=== PATIENT | female | born 1960 | race Caucasian/White ===

== ENCOUNTER 2018-07-13 20:00 | Inpatient (IN) ==
[2018-07-13 20:58] LABS: Basophils # (auto) 0.02 K/uL (0-0.2); Basophils % (auto) 0.3 %; Eosinophils # (auto) 0.14 K/uL (0-0.5); Eosinophils % (auto) 1.8 %; Hematocrit (blood only) 42.2 % (37-47); Hemoglobin 14.2 g/dL (12.0-16.0); Immature Granulocytes # (auto) 0.01 K/uL (0.00-0.02); Immature Granulocytes % (auto) 0.1 %; Lymphocytes # (auto) 2.41 K/uL (1.2-3.4); Lymphocytes % (auto) 30.8 %; Mean Corpuscular Hgb Conc 33.6 g/dL (32-36); Mean Corpuscular Volume 89.2 fL (80-100); Mean Platelet Volume 9.1 fL (7.4-10.4); Monocytes # (auto) 0.46 K/uL (0.11-0.59); Monocytes % (auto) 5.9 %; Neutrophils # (auto) 4.78 K/uL (1.4-6.5); Neutrophils % (auto) 61.1 %; Platelet Count 288 K/uL (130-400); RDW Coefficient of Variation 13.3 % (11.5-14.5); RDW Standard Deviation 43.5 fL (36.4-46.3); Red Blood Count 4.73 M/uL (4.2-5.4); White Blood Count 7.82 K/uL (4.8-10.8)
[2018-07-13 21:14] LABS: Albumin Level 4.1 gm/dl (3.4-5.0); BUN Creatinine Ratio 8.3 (10-20); Calcium 9.2 mg/dl (8.5-10.1); Creatinine Clr Calc Pharmacy 79.3 ml/min; Est GFR (African American) 87.5; Est GFR (Non-African American) 75.5; Potassium 3.6 mmol/L (3.5-5.1)
[2018-07-13 21:24] LABS: Albumin Globulin Ratio 0.9 (0.9-2); Bilirubin,Total 0.3 mg/dl (0.2-1); Globulin 4.5 gm/dl (2.5-4.0); Total Protein 8.6 gm/dl (6.4-8.2)
[2018-07-13 21:26] LABS: Acetaminophen < 2 ug/ml (10-30); Salicylate < 1.7 mg/dl (2.8-20)
[2018-07-13 21:37] LABS: T4 Free Thyroxine 1.06 ng/dl (0.8-1.6)
[2018-07-13 22:18] LABS: Appearance Urine Clear (Clear); Bacteria Urine Automated Negative (Negative); Bilirubin Urine Negative (Negative); Blood Urine Trace (Negative); Color Urine Yellow; Epithelial Cell Urine Auto >30 /lpf (0-5); Glucose Urine UA Negative (Negative); Ketones Urine Negative (Negative); Leukocyte Esterase Urine 3+ (Negative); Nitrite Urine Negative (Negative); Protein Urine Negative (Negative); RBC Urine Automated 0-4 /hpf (0-4); Urobilinogen Urine Negative (Negative); WBC Urine Automated >30 /hpf (0-5); pH Urine 6.5 (4.5-7.5)
[2018-07-13 22:29] LABS: Renal Epithelial Cells Urine 0-5 /lpf (0-5)
[2018-07-13 22:45] LABS: Amphetamines+Metham, Urine Neg (Neg); Barbiturates, Urine Neg (Neg); Benzodiazepine, Urine Neg (Neg); Cocaine, Urine Neg (Neg); MDMA (Ecstacy), Urine Neg (Neg); Methadone, Urine Neg (Neg); Opiate, Urine Neg (Neg); Phencyclidine, Urine Neg (Neg)
--- NOTE | 2018-07-14 02:01 | Emergency Department Note ---
Entered by Jannet Smith acting as a scribe for History of Present Illness General Chief complaint: Mental Health Evaluation Stated complaint: DEPRESSION Time Seen by Provider: 07/13/18 20:16 Source: patient History of Present Illness Onset (ago): month(s) (several) Severity: similar to prior episodes Pain Consistency: + other (episode) Quality: + other (worsening depression) Associated symptoms: + other (positive increased feelings of guilt, increased tiredness; positive increased sleeping; positive loss of interest in activities; positive loss of energy; negative hearing voices; negative thoughts of hurting others; positive cut left arm) The patient is a 58 year old female who presents to the Emergency Room with complaints of an episode of worsening depression that began several months prior to arrival. The patient states that her depression began a few years ago after her committed suicide. She states that during this episode she has been sleeping more, lost interest in activities, feels more tired, loss of appetite, and has less energy. The patient states that she has been feeling worsening guilt during this time. The patient denies thoughts of hurting anyone else, and denies hearing voices that are not there. She states that she recently tried to cut herself on the left arm with a knife, but denies attempting to cut herself anywhere else. The patient states that she sees a psychologist and is on Ambien, Lorazepam, and Paxil. The patient states that she has never been hospitalized for a psychiatric condition. The patient states that she has been drinking more alcohol recently. She states that she has guns at home. The patient denies use of drugs. Home Medications Home Medications Medication Instructions Recorded Confirmed Type lorazepam 0.5 mg PO TID PRN 07/13/18 07/13/18 History paroxetine HCl [Paxil] 10 mg PO DAILY 07/13/18 07/13/18 History zolpidem [Ambien] 5 mg PO HS PRN 07/13/18 07/13/18 History Allergies Allergy/AdvReac Type Severity Reaction Status Date / Time No Known Allergies Allergy Unverified 07/13/18 20:34 Past Med/Surg History Medical History Depression (Chronic) Social History Feels Safe at Home: Yes Smoking Status: Never smoker Review of Systems See HPI for pertinent positives & negatives. and A total of 10 systems reviewed and were otherwise negative Physical Exam Vital Signs Vital Signs - 24 hr 07/13/18 20:09 07/13/18 23:08 Temperature 36.8 C Temperature Source Oral Sepsis Recent Fever Within 48 Hours No Sepsis New/Unexplained Change in Mental Status No Sepsis Action Taken by Nursing No Action Required Pulse Rate 120 H Pulse Rate [Right Finger] 98 H Pulse Rhythm Regular Respiratory Rate 20 16 Respiratory Effort / Characteristics Non-Labored Spontaneous Non-Labored Spontaneous Respiratory Depth Normal Normal Respiratory Pattern Regular Regular Blood Pressure 138/99 Blood Pressure [Left Arm] 146/72 H Blood Pressure Mean 112 Blood Pressure Mean [Left Arm] 96 Blood Pressure Position Sitting Blood Pressure Position [Left Arm] Lying Pulse Oximetry 94 95 Oxygen Delivery Method Room Air Room Air GENERAL: She is oriented to person, place, and time. She appears well-developed and well-nourished. She does not appear distressed. HENT: Exam performed. -Head: Normocephalic and atraumatic. -Right Ear: External ear normal. No mastoid tenderness. -Left Ear: External ear normal. No mastoid tenderness. -Mouth/Throat: The oropharynx is clear and moist. No trismus in the jaw. No dental abscesses or uvula swelling. No oropharyngeal exudate or tonsillar abscesses. EYES: Conjunctivae and EOM are normal. Pupils are equal, round, and reactive to light. Right eye exhibits no discharge. Left eye exhibits no discharge. No scleral icterus. NECK: Normal range of motion. Neck supple. No JVD present. No spinous process tenderness present. No carotid bruit present. No rigidity. No tracheal deviation and normal range of motion present. No Brudzinski's sign and no Kernig's sign noted. CV: Normal rate, regular rhythm, normal heart sounds and intact distal pulses. There is no peripheral edema. Palpable radial pulses bue. PULM/CHEST: Effort normal and breath sounds normal. No respiratory distress. No stridor. She has no wheezes. She has no rales. Chest Wall: She exhibits no tenderness. ABD: The abdomen is soft. Bowel sounds are normal. She has no distension. No mass is present. There is no tenderness. There is no rebound, no guarding, no Mansfield's sign and no tenderness at McBurney's point. Rovsig negative MUSC/SKEL: Normal range of motion. There is no peripheral edema, tenderness or deformity. LYMPH: No cervical adenopathy. NEURO: She is alert and oriented to person, place, and time. She has normal strength. No cranial nerve deficit or sensory deficit. Coordination and gait normal. GCS eye subscore is 4. GCS verbal subscore is 5. GCS motor subscore is 6. cerbellar tests wnl. SKIN: Skin is warm and dry. She is not diaphoretic. Abrasions to the left upper extremity. PSYCH: Her behavior is normal. Judgment and thought content normal. Depressed tearful. Positive SI. No HI. Course 2033: The patient was evaluated in room A5 and a complete history and physical examination were performed. 0200: Vital signs stable. Patient medically cleared, awaiting psych eval. Case signed out to Dr. Aguilar. Medical Decision Making Medical Records Attestation: I reviewed the patient's medical records. Home Medications Current Medication List: was personally reviewed by me Laboratory Data Attestation: I reviewed the patient's lab results. Result diagrams: 07/13/18 20:38 07/13/18 20:38 Lab Results 07/13/18 07/13/18 07/13/18 Range/Units 20:38 20:38 20:38 WBC 7.82 (4.8-10.8) K/uL RBC 4.73 (4.2-5.4) M/uL Hgb 14.2 (12.0-16.0) g/dL Hct 42.2 (37-47) % MCV 89.2 (80-100) fL MCH 30.0 (25-34) pg MCHC 33.6 (32-36) g/dL RDW Std Deviation 43.5 (36.4-46.3) fL RDW Coeff of Chito 13.3 (11.5-14.5) % Plt Count 288 (130-400) K/uL MPV 9.1 (7.4-10.4) fL Immature Gran % (Auto) 0.1 % Neut % (Auto) 61.1 % Lymph % (Auto) 30.8 % Porter % (Auto) 5.9 % Eos % (Auto) 1.8 % Baso % (Auto) 0.3 % Immature Gran # (Auto) 0.01 (0.00-0.02) K/uL Neut # (Auto) 4.78 (1.4-6.5) K/uL Lymph # (Auto) 2.41 (1.2-3.4) K/uL Porter # (Auto) 0.46 (0.11-0.59) K/uL Eos # (Auto) 0.14 (0-0.5) K/uL Baso # (Auto) 0.02 (0-0.2) K/uL Sodium 142 (136-145) mmol/L Potassium 3.6 (3.5-5.1) mmol/L Chloride 110 H (98-107) mmol/L Carbon Dioxide 21 (21-32) mmol/L Anion Gap 11.0 (3-11) BUN 7 (7-18) mg/dl Creatinine 0.86 (0.6-1.2) mg/dl Est Cr Clr Drug Dosing 79.3 ml/min Est GFR ( Amer) 87.5 Est GFR (Non-Af Amer) 75.5 BUN/Creatinine Ratio 8.3 L (10-20) Glucose 130 H (70-99) mg/dl Calcium 9.2 (8.5-10.1) mg/dl Total Bilirubin 0.3 (0.2-1) mg/dl AST 48 H (15-37) U/L ALT 63 (12-78) U/L Alkaline Phosphatase 69 (45-117) U/L Total Protein 8.6 H (6.4-8.2) gm/dl Albumin 4.1 (3.4-5.0) gm/dl Globulin 4.5 H (2.5-4.0) gm/dl Albumin/Globulin Ratio 0.9 (0.9-2) TSH 5.720 H (0.300-4.500) uIu/ml Free T4 1.06 (0.8-1.6) ng/dl Urine Color Urine Appearance (Clear) Urine pH (4.5-7.5) Ur Specific [place] (1.000-1.030) Urine Protein (Negative) Urine Glucose (UA) (Negative) Urine Ketones (Negative) Urine Blood (Negative) Urine Nitrite (Negative) Urine Bilirubin (Negative) Urine Urobilinogen (Negative) Ur Leukocyte Esterase (Negative) Urine WBC (Auto) (0-5) /hpf Urine RBC (Auto) (0-4) /hpf U Hyaline Cast (Auto) (0-5) /lpf U Epithel Cells (Auto) (0-5) /lpf Urine Bacteria (Auto) (Negative) Ur Renal Epithelial Cell (0-5) /lpf Salicylates < 1.7 L (2.8-20) mg/dl Urine Opiates Screen (Neg) Ur Methadone, Qual (Neg) Acetaminophen < 2 L (10-30) ug/ml Urine Barbiturates (Neg) Ur Phencyclidine (PCP) (Neg) U Amphetamin/Meth Scrn (Neg) MDMA (Ecstasy) Screen (Neg) U Benzodiazepines Scrn (Neg) Ur Cocaine Metabolite (Neg) U Marijuana (THC) Screen (Neg) Ethyl Alcohol mg/dL (0-3) mg/dl 07/13/18 07/13/18 07/13/18 Range/Units 20:38 21:40 22:18 WBC (4.8-10.8) K/uL RBC (4.2-5.4) M/uL Hgb (12.0-16.0) g/dL Hct (37-47) % MCV (80-100) fL MCH (25-34) pg MCHC (32-36) g/dL RDW Std Deviation (36.4-46.3) fL RDW Coeff of Chito (11.5-14.5) % Plt Count (130-400) K/uL MPV (7.4-10.4) fL Immature Gran % (Auto) % Neut % (Auto) % Lymph % (Auto) % Porter % (Auto) % Eos % (Auto) % Baso % (Auto) % Immature Gran # (Auto) (0.00-0.02) K/uL Neut # (Auto) (1.4-6.5) K/uL Lymph # (Auto) (1.2-3.4) K/uL Porter # (Auto) (0.11-0.59) K/uL Eos # (Auto) (0-0.5) K/uL Baso # (Auto) (0-0.2) K/uL Sodium (136-145) mmol/L Potassium (3.5-5.1) mmol/L Chloride (98-107) mmol/L Carbon Dioxide (21-32) mmol/L Anion Gap (3-11) BUN (7-18) mg/dl Creatinine (0.6-1.2) mg/dl Est Cr Clr Drug Dosing ml/min Est GFR ( Amer) Est GFR (Non-Af Amer) BUN/Creatinine Ratio (10-20) Glucose (70-99) mg/dl Calcium (8.5-10.1) mg/dl Total Bilirubin (0.2-1) mg/dl AST (15-37) U/L ALT (12-78) U/L Alkaline Phosphatase (45-117) U/L Total Protein (6.4-8.2) gm/dl Albumin (3.4-5.0) gm/dl Globulin (2.5-4.0) gm/dl Albumin/Globulin Ratio (0.9-2) TSH (0.300-4.500) uIu/ml Free T4 (0.8-1.6) ng/dl Urine Color Yellow Urine Appearance Clear (Clear) Urine pH 6.5 (4.5-7.5) Ur Specific [place] 1.010 (1.000-1.030) Urine Protein Negative (Negative) Urine Glucose (UA) Negative (Negative) Urine Ketones Negative (Negative) Urine Blood Trace H (Negative) Urine Nitrite Negative (Negative) Urine Bilirubin Negative (Negative) Urine Urobilinogen Negative (Negative) Ur Leukocyte Esterase 3+ H (Negative) Urine WBC (Auto) >30 H (0-5) /hpf Urine RBC (Auto) 0-4 (0-4) /hpf U Hyaline Cast (Auto) 1-5 (0-5) /lpf U Epithel Cells (Auto) >30 H (0-5) /lpf Urine Bacteria (Auto) Negative (Negative) Ur Renal Epithelial Cell 0-5 (0-5) /lpf Salicylates (2.8-20) mg/dl Urine Opiates Screen Neg (Neg) Ur Methadone, Qual Neg (Neg) Acetaminophen (10-30) ug/ml Urine Barbiturates Neg (Neg) Ur Phencyclidine (PCP) Neg (Neg) U Amphetamin/Meth Scrn Neg (Neg) MDMA (Ecstasy) Screen Neg (Neg) U Benzodiazepines Scrn Neg (Neg) Ur Cocaine Metabolite Neg (Neg) U Marijuana (THC) Screen Neg (Neg) Ethyl Alcohol mg/dL 183.0 H (0-3) mg/dl Blood Pressure Blood Pressure Findings: Elevated blood pressure Blood Pressure Disposition: elevated BP felt to be situational MDM Narrative Vital signs stable. Patient medically cleared, awaiting psych eval. Case signed out to Dr. Aguilar. Impression & Plan Depression Discharge Plan Visit Data Chief Complaint: Mental Health Evaluation Stated Complaint: DEPRESSION ED Provider: Rubio Monaco Discharge Problem: Depression Patient Disposition: Still a Patient Forms Stand Alone Forms: My [facility] Prescriptions Prescriptions: No Action paroxetine HCl [Paxil] 10 mg Tablet 10 mg PO DAILY RF: 0 lorazepam 0.5 mg Tablet 0.5 mg PO TID PRN (Reason: Anxiety) RF: 0 zolpidem [Ambien] 5 mg Tablet 5 mg PO HS PRN (Reason: sleep) RF: 0 Referrals Referrals: PCP,NO [Primary Care Provider] - Discharge Problem: Depression Qualifiers: Depression Type: unspecified Qualified Code(s): F32.9 - Major depressive disorder, single episode, unspecified The scribe's documentation has been prepared under my direction and personally reviewed by me in its entirety. I confirm that the note above accurately reflects all work, treatment, procedures, and medical decision making performed by me.
--- NOTE | 2018-07-14 06:29 | Emergency Department Note ---
ED Visit Note ED Physician Sign Out Note: 58 yr old female with depression and suicidal ideation requesting admission evaluated and medically cleared by Dr Monaco earlier in evening. Signed out to me pending placement. No issues overnight and signed out to Dr Presley pending placement. Anthony Aguilar MD : Depression Qualifiers: Depression Type: unspecified Qualified Code(s): F32.9 - Major depressive disorder, single episode, unspecified
[2018-07-14] MEDS ORDERED: BISMUTH SUBSALICYLATE PER ML OMNICELL CHARGE PO PRN (09:28)
[2018-07-14] MEDS ORDERED: MAGNESIUM HYDROXIDE SUSP 30 ML UDC PO PRN (09:28)
[2018-07-14] MEDS ORDERED: ACETAMINOPHEN 325 MG TAB PO PRN (09:28)
[2018-07-14] MEDS ORDERED: ALUMINUM/MAGNESIUM SUSP 30 ML UDC PO PRN (09:28)
[2018-07-14] MEDS ORDERED: SODIUM CHLORIDE 0.65% NA SOLN 45 ML (OCEAN) PRN (09:28)
--- NOTE | 2018-07-14 10:02 | Emergency Department Note ---
ED Visit Note Patient is a 58-year-old female on a voluntary inpatient commitment suicidal ideation and depression. Was previously medically cleared. Patient was awaiting bed placement. No other acute issues. Evaluated by [facility] and accepted there for further care. ATC . : Depression Qualifiers: Depression Type: unspecified Qualified Code(s): F32.9 - Major depressive disorder, single episode, unspecified
--- NOTE | 2018-07-14 14:21 | History & Physical ---
Date of Service July 14, 2018 Impression / Recommendations Impression 58-year-old woman admitted with severe depression and suicidality and alcohol abuse. She admits to a lifetime struggle with anxiety and depression, only worsened after her committed suicide a year and a half ago. She has had multiple trials of medications none of which gave her much relief. Best response she had was initially with Paxil. She is currently on Zyprexa to augment but does not like the weight gain and so would like to get off of that. We have talked about switching to Abilify which has less risk of weight gain but will need to be cleared with insurance to be sure it is affordable. We will increase Paxil to 60 mg and if no benefit at that dose, consider changing agents. I am concerned about her use of Ambien and Ativan in the setting of chronic alcohol abuse and so we will work toward weaning down on those things. We have also recommended that she abstain from alcohol for the foreseeable future which she agrees to. We will use the AWSS to be sure there is no alcohol with withdrawal to contend with. At this time, the patient requires inpatient mental health treatment due to the severity of her condition and the risk for self-harm if discharged. (1) Depression: 07/14 - Increase Paxil to 60 mg daily - Evaluate affordability of Abilify to augment. Until done, continue Zyprexa 2.5 mg daily - Attempt to taper ambien and ativan due to alcohol abuse - Q 15 min checks for safety - Encourage participation in group and individual counseling - FAmily meeting - Will need psychiatric aftercare - Assist the patient to explore healthy coping strategies and the need for social supports - Will obtain FLP and FBS for monitoring on atypicals - Safety planning Depression Type: unspecified Qualified Code(s): F32.9 - Major depressive disorder, single episode, unspecified Present on Admission?: Yes (2) Generalized anxiety disorder: 07/14 - Meds as above - Assist the patient to explore mindfulness and grounding Present on Admission?: Yes (3) Alcohol abuse: 07/14 - Recommend abstinence. Patient has been counseled about the effects of alcohol on mood. She is receptive to stopping. Greater than 5 min was spend in counseling. - AWSS Present on Admission?: Yes Inventory Assets Strengths: Intelligence, love of family Needs: Healthy coping strategies, to avoid alcohol Risk Factors Assessment Male: No : Yes Do You Have Access To A Gun?: Yes (Has guns, locked in a gun safe but she is the only one with a combination) Health Problems: No Mental Health Diagnoses: Yes Substance Use Disorders: Yes Previous Attempt: Yes Family History of Suicide: Yes Previous Psychiatric Hospitalization: No Protective Factors Assessment Jain Beliefs: Yes : No Responsible for Young Children: No Employed: Yes ([employer] - [employer]) Supportive Family: Yes Good Rapport with Provider: Yes Psychiatric History Identifying Data JUANA SILVA is a 58-year-old woman from the [facility], admitted to our unit voluntarily with severe depression, suicidality and alcohol abuse. Information is gathered from the patient and considered to be reliable. Chief Complaint " My committed suicide 1-1/2 years ago.". History of Present Illness The patient is a 58-year-old woman, currently in therapy with Yari Patton here in [place], who reports that she has struggled with depression all of her life. She remembers feeling suicidal as early as 16, sitting on her bed holding a knife. She had life stressors in her family of origin including a father who was alcoholic and not functional. She also reports that she has been anxious since she was a child including panic attacks. She did not enter into psychiatric treatment until 10 years ago when she saw psychiatrist and had multiple trials of medications, none of which really offered sustained help. She therefore stopped seeing the psychiatrist, but returned to her PCP. Since the only medication she felt an initial boost from was Paxil, they returned Paxil at 20 mg which was increased to 40 mg several weeks ago. She does not think that the increase has benefited her. She is also on Zyprexa which she describes as being used as a mood stabilizer although has put on 40 pounds and does not like the weight. 1-1/2 years ago her , who had been depressed, committed suicide and this is added an additional layer to her depression. She has 3 children, all of whom have had their own struggles, 2 of which have had depression and inpatient hospitalizations. Last evening, the patient began drinking wine which she usually does in the evening. She admits that she will usually have about 4 drinks although last night had as many as 6. She says that she drinks because then she can feel and is able to cry where she is not able to cry without the alcohol. Last night she says that she was crying inconsolably for hours and her son became concerned and brought her to the emergency department. Today, she is admitted voluntarily. She admits to ongoing chronic and worsening depression. She admits to having suicidal thoughts that are chronic. She says that she has thought about a plan which would include overdosing on medications and alcohol and going somewhere to hide so that she would not be found. She has had long struggles with sleep and is on Ambien 10 mg which she has been using every night lately. Although she reports a 40 pound weight gain since starting Zyprexa, she reports that lately her appetite is been down and she is lost 4 5 pounds. She endorses chronic anxiety dating back to her childhood with panic attacks with triggers that are "nothing or anything". She denies ever having had evidence of psychosis including auditory or visual hallucinations. She denies symptoms of OCD or eating disorders. She does admit to one recent episode of self-injurious behaviors, having cut her left forearm superficially saying that a friend cuts to relieve stress and so she thought she try it, "and it works". She denies any bipolar symptoms including discrete episodes of euphoric mood, decreased need for sleep or increased in goal-directed activities. Past Psychiatric History Previous Psych History: Previously saw a psychiatrist Current Psychiatric Diagnosis: Depression Outpatient Services: [facility] for therapy Previous Psych Admissions: denies Do You Have Access To A Gun?: Yes (Has guns, locked in a gun safe but she is the only one with a combination) History of Previous Suicide Attempt: Yes Describe Attempts in the Past: Reports a suicide attempt by overdose in 2013 after an argument with her Past Medication Trials: Includes but not limited to: Paxil Effexor Lexapro Prozac Seroquel Allergies Allergy/AdvReac Type Severity Reaction Status Date / Time No Known Allergies Allergy Unverified 07/13/18 20:34 Home Medications Home Medications Medication Instructions Recorded Confirmed Type lorazepam 0.5 mg PO TID PRN 07/13/18 07/13/18 History paroxetine HCl [Paxil] 10 mg PO DAILY 07/13/18 07/13/18 History zolpidem [Ambien] 5 mg PO HS PRN 07/13/18 07/13/18 History Family History Family History of: Alcoholism/Drug Abuse and Suicide Attempts Family Mental Health History Comment: Father was an alcoholic. Two cousins commited suicide Alcohol History Hx of Alcohol Use Over the Past 12 Months: Yes (daily, 5-6 glasses of wine) AUDIT Total Score: 14 Smoking Use Have You Smoked or Used Tobacco Products in the Last 30 Days: No Smoking Status: Never smoker Substance History Hx of Prescription Med Misuse Over the Past 12 Months: No Hx of Over the Counter Med Misuse Over the Past 12 Months: No Hx of Inhalent Misuse Over the Past 12 Months: No Hx of Organic Substance Use Over the Past 12 Months: No Hx of Illegal Substances/Street Drug Use Over Past 12 Months: No Problems as a Result of Past Substance Use: None Identified Personal History Living Arrangements: Home Child[place]: [place] mother and father who are both . She has 2 brothers who also live in that area. 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 Highest Grade Completed: Graduate School Employment Status: Self-Employed Marital Status: Number Of Children: 3 Beliefs That Will Affect Care: None Current Legal Problems: No Hx Legal Problems: No Psychological Trauma History Comment: Has been suicide, son with motor vehicle accident and life flighted to [facility], youngest daughter with a suicide attempt, son with depression and inpatient treatment Patient History Medical History Depression (Chronic) GERD (gastroesophageal reflux disease) Social History Preferred Language: Puerto Rican Communication Ability: Effective Beliefs That Will Affect Care: None Feels Safe at Home: Yes Smoking Status: Never smoker Review of Systems Review of Systems: All systems reviewed & are unremarkable except as noted in HPI & below Respiratory: + cough (That she relates to anxiety) Musculoskeletal: Right-sided jaw pain from clenching rated 1 out of 10 Integumentary: + wounds (Multiple superficial cuts to left forearm) Physical Exam Mental Examination: Physical exam performed by Dr. Monaco in the emergency department has been reviewed and accepted as medical clearance for our unit Psychiatric: Orientation: alert, oriented x 3 and cooperative Apperance: appropriately dressed and appropriately groomed Eye Contact: good eye contact Motor Behavior: steady gait and station and no abnormal motor movements Speech: normal rate/rhythm/volume of speech Affect: + depressed affect and + flat affect Mood: + depressed mood and + anxious mood Thought Process: goal directed thought process Thought Content: reality based without delusions Suicidal Thoughts: + reports suicidal thoughts and + reports suicidal plan Homicidal Thoughts: denies homicidal thoughts Hallucinations: no auditory hallucinations and no visual hallucinations Cognition: recent memory grossly intact, remote memory grossly intact, attention grossly intact and language grossly intact Estimated Intelligence: consistent with education level Insight: + impaired insight Judgement: + impaired judgement Vital Signs (Past 24 Hours): Last Vital Signs Temp 36.7 C 07/14/18 11:29 Pulse 80 07/14/18 11:29 Resp 16 07/14/18 11:29 BP 142/84 H 07/14/18 11:29 Pulse Ox 97 07/14/18 11:29 Results & Data Laboratory Results Laboratory Results - last 24 hr 07/13/18 07/13/18 07/13/18 20:38 20:38 20:38 WBC 7.82 RBC 4.73 Hgb 14.2 Hct 42.2 MCV 89.2 MCH 30.0 MCHC 33.6 RDW Std Deviation 43.5 RDW Coeff of Chito 13.3 Plt Count 288 MPV 9.1 Immature Gran % (Auto) 0.1 Neut % (Auto) 61.1 Lymph % (Auto) 30.8 Payne % (Auto) 5.9 Eos % (Auto) 1.8 Baso % (Auto) 0.3 Immature Gran # (Auto) 0.01 Neut # (Auto) 4.78 Lymph # (Auto) 2.41 Payne # (Auto) 0.46 Eos # (Auto) 0.14 Baso # (Auto) 0.02 Sodium 142 Potassium 3.6 Chloride 110 H Carbon Dioxide 21 Anion Gap 11.0 BUN 7 Creatinine 0.86 Est Cr Clr Drug Dosing 79.3 Est GFR ( Amer) 87.5 Est GFR (Non-Af Amer) 75.5 BUN/Creatinine Ratio 8.3 L Glucose 130 H Calcium 9.2 Total Bilirubin 0.3 AST 48 H ALT 63 Alkaline Phosphatase 69 Total Protein 8.6 H Albumin 4.1 Globulin 4.5 H Albumin/Globulin Ratio 0.9 TSH 5.720 H Free T4 1.06 Urine Color Urine Appearance Urine pH Ur Specific [place] Urine Protein Urine Glucose (UA) Urine Ketones Urine Blood Urine Nitrite Urine Bilirubin Urine Urobilinogen Ur Leukocyte Esterase Urine WBC (Auto) Urine RBC (Auto) U Hyaline Cast (Auto) U Epithel Cells (Auto) Urine Bacteria (Auto) Ur Renal Epithelial Cell Salicylates < 1.7 L Urine Opiates Screen Ur Methadone, Qual Acetaminophen < 2 L Urine Barbiturates Ur Phencyclidine (PCP) U Amphetamin/Meth Scrn MDMA (Ecstasy) Screen U Benzodiazepines Scrn Ur Cocaine Metabolite U Marijuana (THC) Screen Ethyl Alcohol mg/dL 07/13/18 07/13/18 07/13/18 20:38 21:40 22:18 WBC RBC Hgb Hct MCV MCH MCHC RDW Std Deviation RDW Coeff of [place] Plt Count MPV Immature Gran % (Auto) Neut % (Auto) Lymph % (Auto) Payne % (Auto) Eos % (Auto) Baso % (Auto) Immature Gran # (Auto) Neut # (Auto) Lymph # (Auto) Payne # (Auto) Eos # (Auto) Baso # (Auto) Sodium Potassium Chloride Carbon Dioxide Anion Gap BUN Creatinine Est Cr Clr Drug Dosing Est GFR ( Amer) Est GFR (Non-Af Amer) BUN/Creatinine Ratio Glucose Calcium Total Bilirubin AST ALT Alkaline Phosphatase Total Protein Albumin Globulin Albumin/Globulin Ratio TSH Free T4 Urine Color Yellow Urine Appearance Clear Urine pH 6.5 Ur Specific [place] 1.010 Urine Protein Negative Urine Glucose (UA) Negative Urine Ketones Negative Urine Blood Trace H Urine Nitrite Negative Urine Bilirubin Negative Urine Urobilinogen Negative Ur Leukocyte Esterase 3+ H Urine WBC (Auto) >30 H Urine RBC (Auto) 0-4 U Hyaline Cast (Auto) 1-5 U Epithel Cells (Auto) >30 H Urine Bacteria (Auto) Negative Ur Renal Epithelial Cell 0-5 Salicylates Urine Opiates Screen Neg Ur Methadone, Qual Neg Acetaminophen Urine Barbiturates Neg Ur Phencyclidine (PCP) Neg U Amphetamin/Meth Scrn Neg MDMA (Ecstasy) Screen Neg U Benzodiazepines Scrn Neg Ur Cocaine Metabolite Neg U Marijuana (THC) Screen Neg Ethyl Alcohol mg/dL 183.0 H Current Inpatient Medications Current Inpatient Medications: Current Inpatient Medications Acetaminophen (Tylenol) 650 mg PO Q4H PRN PRN Reason: Headache or Minor Fever Stop: 08/13/18 09:27 Al Hydrox/Mg Hydrox/Simethicone (Maalox) 30 ml PO Q4H PRN PRN Reason: GI Upset Stop: 08/13/18 09:27 Bismuth Subsalicylate (Kaopectate) 15 ml PO PRN PRN PRN Reason: Loose Stool Stop: 08/13/18 09:27 Hydroxyzine HCl (Vistaril) 50 mg PO HSZ PRN PRN Reason: Insomnia Stop: 08/13/18 09:27 Hydroxyzine HCl (Vistaril) 25 mg PO Q4H PRN PRN Reason: Anxiety Stop: 08/13/18 09:27 Magnesium Hydroxide (Milk Of Magnesia) 30 ml PO DAILY PRN PRN Reason: Heartburn Stop: 08/13/18 09:27 Sodium Chloride ([place] Nasal) 1 - 2 sprays NA PRN PRN PRN Reason: Nasal Dryness/Congestion Stop: 08/13/18 09:27 CPT Code CPT Code Initial Hospital Care: 17093
[2018-07-14] MEDS: ZOLPIDEM TARTRATE 5 MG TAB PO PRN (20:51)
[2018-07-14] MEDS: OLANZAPINE 2.5 MG TAB PO SCH (22:36)
[2018-07-15] MEDS: LORazepam 0.5 MG TAB PO PRN (01:31)
[2018-07-15] MEDS ORDERED: LORazepam 1 MG TAB PO PRN (08:34)
[2018-07-15] MEDS: PARoxetine HCl 20 MG TAB PO SCH (09:18)
--- NOTE | 2018-07-15 10:21 | Psychiatric Progress Note ---
Date of Service July 15, 2018 Impression / Recommendations Impression 58-year-old woman admitted with severe depression, suicidality, and alcohol abuse. She admits to a lifetime struggle with anxiety and depression, which worsened after her committed suicide a year and a half ago. She has had multiple trials of medications, none of which gave her much relief. Best response she had was initially with Paxil, and her PCP added Zyprexa to augment. She does not like the weight gain and so would like to get off of that, and we are exploring affordability of aripiprazole. On admission, paroxetine was increased to 60 mg, and if no benefit at that dose, consider changing agents. I am concerned about her use of Ambien and Ativan in the setting of chronic alcohol abuse and so we will work toward weaning down on those medications, and will need to coordinate care with [facility] in [place] (PCP's office), who prescribes these controlled substances. We have also recommended that she abstain from alcohol for the foreseeable future which she agrees to, although she simultaneously says her alcohol intake is not a problem. She is on the AW protocol to monitor for withdrawal. Family meeting has been arranged with her adult children, and she will need to be referred for outpatient psychiatric care. The patient requires inpatient mental health treatment due to the severity of her condition and the risk for self-harm if discharged. (1) Depression: 07/14 - Increase Paxil to 60 mg daily - Evaluate affordability of Abilify to augment. Until done, continue Zyprexa 2.5 mg daily - Attempt to taper ambien and ativan due to alcohol abuse - Q 15 min checks for safety - Encourage participation in group and individual counseling - Family meeting - Will need psychiatric aftercare - Assist the patient to explore healthy coping strategies and the need for social supports - Will obtain FLP and FBS for monitoring on atypicals - Safety planning 07/15 -Explore affordability of aripiprazole; in the meantime continue olanzapine 2.5. Fasting lipid profile and glucose ordered for tomorrow. Reviewed the risks, benefits, and side effects of augmentation with an atypical antipsychotic with the patient, she states she has never had fasting labs done before and they have not been followed while taking olanzapine. -Family meeting with adult children. (2) Generalized anxiety disorder: 07/14 - Meds as above - Assist the patient to explore mindfulness and grounding (3) Alcohol abuse: 07/14 - Recommend abstinence. Patient has been counseled about the effects of alcohol on mood. She is receptive to stopping. Greater than 5 min was spend in counseling. - AWSS 07/15 - Continued psychoeducation about the risks of chronic, heavy alcohol use. Reviewed that it is a depressant, can worsen mood over time, and that use of controlled substances such as zolpidem and benzodiazepines are contraindicated with daily alcohol use. - Care coordinated with PCP at [facility] in [place] (information provided to the clinic nurse), PCP who is prescribing these medications, and will send records. Continue taper off Lorazepam and zolpidem. Inventory Assets Strengths: Intelligence, love of family Needs: Healthy coping strategies, to avoid alcohol Risk Factors Assessment Male: No : Yes Do You Have Access To A Gun?: Yes (Has guns, locked in a gun safe but she is the only one with a combination) Health Problems: No Mental Health Diagnoses: Yes Substance Use Disorders: Yes Previous Attempt: Yes Family History of Suicide: Yes Previous Psychiatric Hospitalization: No Protective Factors Assessment Cheondoism Beliefs: Yes : No Responsible for Young Children: No Employed: Yes ([employer] - [employer]) Supportive Family: Yes Good Rapport with Provider: Yes Interval History Identifying Information JUANA SILVA is a 58-year-old woman from [place] who has a history of depression, anxiety and alcohol use disorder, and was admitted to our unit voluntarily on 07/14/18 with severe depression, suicidality and alcohol abuse. Chief Complaint "Frustrated". Review of Systems Notes Denies shakes, sweats, diarrhea, nausea Meal Information Percent Meal Consumed - Breakfast: 100 Percent Meal Consumed - Lunch: 50 Percent Meal Consumed - Dinner: 50 Subjective Subjective Patient was seen & assessed and interval progress reviewed with nursing and social work. Staff report she attended and participated in groups, with flat affect and soft speech. She requested and received zolpidem and then Lorazepam overnight for poor sleep. On my assessment, the patient reports feeling "overwhelmed," "frustrated" with her depression, and "stuck," unable to find a way to feel better. She is disturbed by the milieu and some of her peers. She tolerated the increased dose of paroxetine well. Sleep was "not very good, I just don't sleep well," despite taking Ambien. States that even when she was taking 10 mg at night, sleep remained poor. Reviewed risks of mixing Ambien, alcohol and benzodiazepines. She says her drinking "isn't really a problem," and she "likes that it makes me feel, I can cry." When drinking, she "can uncontrollably cry," which she likes. Discussed other ways to manage negative emotions, such as walking (has [place] trails on [place]), or talking to others about her emotions, which she admits she does not do. She says that "everyone has told me I should stop drinking, but I do not really think I need to." She is willing for a family meeting with her adult children, and a referral for outpatient psychiatric care. She feels safe in the hospital, and denies suicidal thoughts since admission. She denies active withdrawal symptoms. Physical Exam Psychiatric Orientation: alert, oriented x 3 and cooperative Apperance: appropriately dressed, appropriately groomed and appeared stated age Eye Contact: good eye contact (Staring) Motor Behavior: steady gait and station and no abnormal motor movements Speech is minimal, monotone Affect: + flat affect Mood: + depressed mood Thought Process: goal directed thought process Thought Content: + cognitive distortions Suicidal Thoughts: denies suicidal thoughts Homicidal Thoughts: denies homicidal thoughts Hallucinations: no auditory hallucinations Cognition: recent memory grossly intact, attention grossly intact and language grossly intact Insight: + impaired insight Judgement: + impaired judgement Vital Signs (Past 24 Hours) Last Vital Signs Temp 36.7 C 07/15/18 09:19 Pulse 81 07/15/18 09:19 Resp 18 07/15/18 09:19 BP 133/83 07/15/18 09:19 Pulse Ox 97 07/14/18 11:29 Results & Data Laboratory Results Laboratory Results - last 24 hr 07/15/18 08:49 Folate > 24.00 Current Inpatient Medications Current Inpatient Medications: Current Inpatient Medications Acetaminophen (Tylenol) 650 mg PO Q4H PRN PRN Reason: Headache or Minor Fever Stop: 08/13/18 09:27 Al Hydrox/Mg Hydrox/Simethicone (Maalox) 30 ml PO Q4H PRN PRN Reason: GI Upset Stop: 08/13/18 09:27 Bismuth Subsalicylate (Kaopectate) 15 ml PO PRN PRN PRN Reason: Loose Stool Stop: 08/13/18 09:27 Hydroxyzine HCl (Vistaril) 50 mg PO HSZ PRN PRN Reason: Insomnia Stop: 08/13/18 09:27 Hydroxyzine HCl (Vistaril) 25 mg PO Q4H PRN PRN Reason: Anxiety Stop: 08/13/18 09:27 Lorazepam (Ativan) 0.5 mg PO BID PRN PRN Reason: Anxiety Stop: 08/13/18 14:20 Last Admin: 07/15/18 01:31 Dose: 0.5 mg Documented by: Lorazepam (Ativan) 1 mg PO ONE PRN; Protocol PRN Reason: EtoH Withdrawal AWSS 6-10 Magnesium Hydroxide (Milk Of Magnesia) 30 ml PO DAILY PRN PRN Reason: Heartburn Stop: 08/13/18 09:27 Olanzapine (Zyprexa) 2.5 mg PO HS YAIR Stop: 08/13/18 21:59 Last Admin: 07/14/18 22:36 Dose: 2.5 mg Documented by: Paroxetine HCl (Paxil) 60 mg PO DAILY YAIR Stop: 08/14/18 08:59 Last Admin: 07/15/18 09:18 Dose: 60 mg Documented by: Sodium Chloride ([place] Nasal) 1 - 2 sprays NA PRN PRN PRN Reason: Nasal Dryness/Congestion Stop: 08/13/18 09:27 Zolpidem Tartrate (Ambien) 5 mg PO HS PRN PRN Reason: sleep Stop: 08/13/18 14:20 Last Admin: 07/14/18 20:51 Dose: 5 mg Documented by: Post Discharge Appointments Primary Care Physician Name Of Family Doctor: [facility] - Dr. Buck / Alia Navarro PA-C Primary Care Time of Appointment with PCP: Follow up as needed. Provider Appointment Comment: [address], [address]. [place] [address] Therapist Name of Therapist: Yari Brower [facility] - [facility] Therapist's Phone Number: [address], [address], [place] [address] Date of Therapist Appointment: 07/21/18 Time of Therapist Appointment: 8am Therapy Appointment Comment: [phone] Head Orthopedic Team Physician Name of Head Orthopedic Team Physician: None Contact Information Discharge Discharge Address: [facility], [place] [address] CPT Code CPT Code 84098 (1) Depression Depression Type: unspecified Qualified Code(s): F32.9 - Major depressive disorder, single episode, unspecified
[2018-07-15] MEDS: OLANZAPINE 2.5 MG TAB PO SCH (21:17)
[2018-07-15] MEDS: ZOLPIDEM TARTRATE 5 MG TAB PO PRN (21:17)
[2018-07-16] MEDS: LORazepam 0.5 MG TAB PO PRN (01:15)
[2018-07-16 07:57] LABS: Glucose Fasting 92 mg/dl (70-99)
[2018-07-16 08:03] LABS: Chol HDL Ratio 3; Cholesterol 202 mg/dl (0-200); HDL Cholesterol 69 mg/dl; LDL Cholesterol Calculated 96 mg/dl; Triglycerides 183 mg/dl (0-150); VLDL Cholesterol 37 mg/dl
[2018-07-16] MEDS: PARoxetine HCl 20 MG TAB PO SCH (08:40)
--- NOTE | 2018-07-16 11:26 | Discharge Summary ---
Date of Service July 16, 2018 History of Present Illness The patient is a 58-year-old woman, currently in therapy with Yari Patton here in [place], who reports that she has struggled with depression all of her life. She remembers feeling suicidal as early as 16, sitting on her bed holding a knife. She had life stressors in her family of origin including a father who was alcoholic and not functional. She also reports that she has been anxious since she was a child including panic attacks. She did not enter into psychiatric treatment until 10 years ago when she saw psychiatrist and had multiple trials of medications, none of which really offered sustained help. She therefore stopped seeing the psychiatrist, but returned to her PCP. Since the only medication she felt an initial boost from was Paxil, they returned Paxil at 20 mg which was increased to 40 mg several weeks ago. She does not think that the increase has benefited her. She is also on Zyprexa which she describes as being used as a mood stabilizer although has put on 40 pounds and does not like the weight. 1-1/2 years ago her , who had been depressed, committed suicide and this is added an additional layer to her depression. She has 3 children, all of whom have had their own struggles, 2 of which have had depression and inpatient hospitalizations. Last evening, the patient began drinking wine which she usually does in the evening. She admits that she will usually have about 4 drinks although last night had as many as 6. She says that she drinks because then she can feel and is able to cry where she is not able to cry without the alcohol. Last night she says that she was crying inconsolably for hours and her son became concerned and brought her to the emergency department. Today, she is admitted voluntarily. She admits to ongoing chronic and worsening depression. She admits to having suicidal thoughts that are chronic. She says that she has thought about a plan which would include overdosing on medications and alcohol and going somewhere to hide so that she would not be found. She has had long struggles with sleep and is on Ambien 10 mg which she has been using every night lately. Although she reports a 40 pound weight gain since starting Zyprexa, she reports that lately her appetite is been down and she is lost 4 5 pounds. She endorses chronic anxiety dating back to her childhood with panic attacks with triggers that are "nothing or anything". She denies ever having had evidence of psychosis including auditory or visual hallucinations. She denies symptoms of OCD or eating disorders. She does admit to one recent episode of self-injurious behaviors, having cut her left forearm superficially saying that a friend cuts to relieve stress and so she thought she try it, "and it works". She denies any bipolar symptoms including discrete episodes of euphoric mood, decreased need for sleep or increased in goal-directed activities. Physical Exam Psychiatric Orientation: alert and cooperative Apperance: appropriately dressed and appropriately groomed Eye Contact: good eye contact Motor Behavior: steady gait and station and no abnormal motor movements Speech: normal rate/rhythm/volume of speech Affect: + blunted affect Mood: no depressed mood (rates her mood 6/10) and no anxious mood Thought Process: goal directed thought process Thought Content: reality based without delusions Suicidal Thoughts: denies suicidal thoughts Homicidal Thoughts: denies homicidal thoughts Hallucinations: no auditory hallucinations and no visual hallucinations Cognition: recent memory grossly intact, remote memory grossly intact, attention grossly intact and language grossly intact Estimated Intelligence: average estimated intelligence Insight: + fair insight Judgement: + fair judgement Vital Signs (Past 24 Hours) Last Vital Signs Temp 36.7 C 07/16/18 06:00 Pulse 77 07/16/18 06:00 Resp 16 07/16/18 06:00 BP 125/82 07/16/18 06:00 Pulse Ox 97 07/14/18 11:29 Principal Diagnosis Major depressive disorder, recurrent, severe, without psychotic features. Alcohol abuse. [facility] Psychiatric Data 58-year-old woman admitted to our unit voluntarily with severe depression, suicidality and alcohol abuse. This occurred in the setting of chronic depression since she was a child, worsened after the suicide of her 1-1/2 years ago. For complete admission information I refer you to the attached history and physical. The patient was on her unit for 3 days. During her stay, her medications were evaluated. Paxil was increased from 40 to 60 mg daily and a discussion was held about changing her augmenting agent. She had most recently been on Zyprexa but was uncomfortable with the amount of weight gain and so by the day of discharge agreed to a trial of Abilify starting at 2.5 mg daily. There was some delay in getting this started to to problems with her insurance. The initial impression from the pharmacist was that it would be covered at a reasonable ernandez. Therefore she was started on it and Zyprexa discontinued. During her stay she was a good group and individual participant. She acknowledged that she has been isolating, not leaving her house when she did not need to. She agreed that she needed to reach out to friends and so as part of her safety plan, has a list of 6 people who she plans to include as supports which include 3 of her friends who visited last evening and her daughter. We recommended that she have follow-up with a psychiatric prescriber however she declined this saying that her insurance would not pay for such a thing where it would pay for her to be seen by a PCP. Monitoring labs were obtained in defe rence to the use of an atypical antipsychotic. These were reviewed with the patient. Her fasting glucose was within normal, total cholesterol and triglycerides elevated. LDL and HDL within normal. She will need to have these followed in another 3 months. During her stay although she characterized her suicidal thinking is chronic. It did lessen to a large degree and she was more hopeful moving forward. Family meeting will be held with her sons this afternoon at 3:00. We recommended that she abstain from alcohol for at least the next 6 months which today she has agreed to do. She has been provided Ambien and Ativan by her PCP and we have tapered this, reducing Ativan from 3 times daily to twice daily, and cut her Ambien dose from 10 to 5 mg, in deference to concerns about using these substances with alcohol, resulting in CLOTH TESTER depression. We are recommending that if she returns to drinking that these medications be discontinued altogether. Risk factors were mediated through the use of medications, group and individual counseling, family meeting, coordination with outpatient providers, safety planning and aftercare planning. Day of Discharge Assessment Today the patient is requesting discharge. She feels improved over admission. She is pleased that she has decided to reach out to friends and has a positive safety plan. She denies active suicidal ideation today and is forward thinking, with plans to return to work on Thursday. Today the patient is casually and appropriately dressed and groomed. Affect is restricted but able to smile. Gait and station are within normal limits. Eye contact is good. Speech is of normal rate volume and tone. Thoughts are organized, goal-directed, and without evidence of thought disorder. Recent and remote memory are intact per conversation. Intelligence is estimated to be average. Insight and judgment are improved over admission. She agrees to abstain from alcohol in the near future. Alcohol counseling will be provided by her PCP Transition of Care Transition Of Care Record: was reviewed with the patient Advance Directives Advance Directives Information Provided: Yes Advance Directives: Yes Mental Health Advance Directive: No Advance Directives on File: No Living Will: Yes Power of Office Director: Yes Power of Office Director Name: Gissel Forte Advance Directives Reason:: Declines as Mental Health Visit. 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) Supportive Family: Yes Good Rapport with Provider: Yes Tobacco Cessation at Discharge Tobacco Cessation Medication Prescribed at Discharge: Not Applicable/Non-Smoker Total Time Total Time Spent: Greater Than 30 Minutes Total Time Includes: Examination of the patient, Discharge Planning, Medication Reconciliation and Communication with other providers Discharge Data Lab Results 07/13/18 07/13/18 07/13/18 20:38 20:38 20:38 WBC 7.82 RBC 4.73 Hgb 14.2 Hct 42.2 MCV 89.2 MCH 30.0 MCHC 33.6 RDW Std Deviation 43.5 RDW Coeff of Chito 13.3 Plt Count 288 MPV 9.1 Immature Gran % (Auto) 0.1 Neut % (Auto) 61.1 Lymph % (Auto) 30.8 Carbon % (Auto) 5.9 Eos % (Auto) 1.8 Baso % (Auto) 0.3 Immature Gran # (Auto) 0.01 Neut # (Auto) 4.78 Lymph # (Auto) 2.41 Carbon # (Auto) 0.46 Eos # (Auto) 0.14 Baso # (Auto) 0.02 Sodium 142 Potassium 3.6 Chloride 110 H Carbon Dioxide 21 Anion Gap 11.0 BUN 7 Creatinine 0.86 Est Cr Clr Drug Dosing 79.3 Est GFR ( Amer) 87.5 Est GFR (Non-Af Amer) 75.5 BUN/Creatinine Ratio 8.3 L Glucose 130 H Fasting Glucose Calcium 9.2 Total Bilirubin 0.3 AST 48 H ALT 63 Alkaline Phosphatase 69 Total Protein 8.6 H Albumin 4.1 Globulin 4.5 H Albumin/Globulin Ratio 0.9 Triglycerides Cholesterol LDL Cholesterol, Calc VLDL Cholesterol, Calc HDL Cholesterol Cholesterol/HDL Ratio Folate TSH 5.720 H Free T4 1.06 Urine Color Urine Appearance Urine pH Ur Specific [place] Urine Protein Urine Glucose (UA) Urine Ketones Urine Blood Urine Nitrite Urine Bilirubin Urine Urobilinogen Ur Leukocyte Esterase Urine WBC (Auto) Urine RBC (Auto) U Hyaline Cast (Auto) U Epithel Cells (Auto) Urine Bacteria (Auto) Ur Renal Epithelial Cell Salicylates < 1.7 L Urine Opiates Screen Ur Methadone, Qual Acetaminophen < 2 L Urine Barbiturates Ur Phencyclidine (PCP) U Amphetamin/Meth Scrn MDMA (Ecstasy) Screen U Benzodiazepines Scrn Ur Cocaine Metabolite U Marijuana (THC) Screen Ethyl Alcohol mg/dL 07/13/18 07/13/18 07/13/18 20:38 21:40 22:18 WBC RBC Hgb Hct MCV MCH MCHC RDW Std Deviation RDW Coeff of Chito Plt Count MPV Immature Gran % (Auto) Neut % (Auto) Lymph % (Auto) Carbon % (Auto) Eos % (Auto) Baso % (Auto) Immature Gran # (Auto) Neut # (Auto) Lymph # (Auto) Carbon # (Auto) Eos # (Auto) Baso # (Auto) Sodium Potassium Chloride Carbon Dioxide Anion Gap BUN Creatinine Est Cr Clr Drug Dosing Est GFR ( Amer) Est GFR (Non-Af Amer) BUN/Creatinine Ratio Glucose Fasting Glucose Calcium Total Bilirubin AST ALT Alkaline Phosphatase Total Protein Albumin Globulin Albumin/Globulin Ratio Triglycerides Cholesterol LDL Cholesterol, Calc VLDL Cholesterol, Calc HDL Cholesterol Cholesterol/HDL Ratio Folate TSH Free T4 Urine Color Yellow Urine Appearance Clear Urine pH 6.5 Ur Specific [place] 1.010 Urine Protein Negative Urine Glucose (UA) Negative Urine Ketones Negative Urine Blood Trace H Urine Nitrite Negative Urine Bilirubin Negative Urine Urobilinogen Negative Ur Leukocyte Esterase 3+ H Urine WBC (Auto) >30 H Urine RBC (Auto) 0-4 U Hyaline Cast (Auto) 1-5 U Epithel Cells (Auto) >30 H Urine Bacteria (Auto) Negative Ur Renal Epithelial Cell 0-5 Salicylates Urine Opiates Screen Neg Ur Methadone, Qual Neg Acetaminophen Urine Barbiturates Neg Ur Phencyclidine (PCP) Neg U Amphetamin/Meth Scrn Neg MDMA (Ecstasy) Screen Neg U Benzodiazepines Scrn Neg Ur Cocaine Metabolite Neg U Marijuana (THC) Screen Neg Ethyl Alcohol mg/dL 183.0 H 07/15/18 07/16/18 08:49 07:00 WBC RBC Hgb Hct MCV MCH MCHC RDW Std Deviation RDW Coeff of Chito Plt Count MPV Immature Gran % (Auto) Neut % (Auto) Lymph % (Auto) Carbon % (Auto) Eos % (Auto) Baso % (Auto) Immature Gran # (Auto) Neut # (Auto) Lymph # (Auto) Carbon # (Auto) Eos # (Auto) Baso # (Auto) Sodium Potassium Chloride Carbon Dioxide Anion Gap BUN Creatinine Est Cr Clr Drug Dosing Est GFR ( Amer) Est GFR (Non-Af Amer) BUN/Creatinine Ratio Glucose Fasting Glucose 92 Calcium Total Bilirubin AST ALT Alkaline Phosphatase Total Protein Albumin Globulin Albumin/Globulin Ratio Triglycerides 183 H Cholesterol 202 H LDL Cholesterol, Calc 96 VLDL Cholesterol, Calc 37 HDL Cholesterol 69 Cholesterol/HDL Ratio 3 Folate > 24.00 TSH Free T4 Urine Color Urine Appearance Urine pH Ur Specific [place] Urine Protein Urine Glucose (UA) Urine Ketones Urine Blood Urine Nitrite Urine Bilirubin Urine Urobilinogen Ur Leukocyte Esterase Urine WBC (Auto) Urine RBC (Auto) U Hyaline Cast (Auto) U Epithel Cells (Auto) Urine Bacteria (Auto) Ur Renal Epithelial Cell Salicylates Urine Opiates Screen Ur Methadone, Qual Acetaminophen Urine Barbiturates Ur Phencyclidine (PCP) U Amphetamin/Meth Scrn MDMA (Ecstasy) Screen U Benzodiazepines Scrn Ur Cocaine Metabolite U Marijuana (THC) Screen Ethyl Alcohol mg/dL Hospital Course (1) Depression: 07/14 - Increase Paxil to 60 mg daily - Evaluate affordability of Abilify to augment. Until done, continue Zyprexa 2.5 mg daily - Attempt to taper ambien and ativan due to alcohol abuse - Q 15 min checks for safety - Encourage participation in group and individual counseling - Family meeting - Will need psychiatric aftercare - Assist the patient to explore healthy coping strategies and the need for social supports - Will obtain FLP and FBS for monitoring on atypicals - Safety planning 07/15 -Explore affordability of aripiprazole; in the meantime continue olanzapine 2.5. Fasting lipid profile and glucose ordered for tomorrow. Reviewed the risks, benefits, and side effects of augmentation with an atypical antipsychotic with the patient, she states she has never had fasting labs done before and they have not been followed while taking olanzapine. -Family meeting with adult children. (2) Generalized anxiety disorder: 07/14 - Meds as above - Assist the patient to explore mindfulness and grounding (3) Alcohol abuse: 07/14 - Recommend abstinence. Patient has been counseled about the effects of alcohol on mood. She is receptive to stopping. Greater than 5 min was spend in counseling. - AWSS 07/15 - Continued psychoeducation about the risks of chronic, heavy alcohol use. Reviewed that it is a depressant, can worsen mood over time, and that use of controlled substances such as zolpidem and benzodiazepines are contraindicated with daily alcohol use. - Care coordinated with PCP at [facility] in [place] (information provided to the clinic nurse), PCP who is prescribing these medications, and will send records. Continue taper off Lorazepam and zolpidem. Post Discharge Appointments Primary Care Physician Name Of Family Doctor: [facility] - Dr. Buck / Alia Navarro PA-C Primary Care Date of Appointment with PCP: 07/26/18 Time of Appointment with PCP: 11am Provider Appointment Comment: [address], [address]. [place] [address] Therapist Name of Therapist: Yari Brower [facility] - [facility] Therapist's Phone Number: [phone] , [phone], [place] [address] Date of Therapist Appointment: 07/21/18 Time of Therapist Appointment: 8am Therapy Appointment Comment: [phone] Permastone Mechanic Name of Permastone Mechanic: None Smoking Cessation Counseling Tobacco Cessation Medication Prescribed at Discharge: Not Applicable/Non-Smoker Contact Information Discharge Discharge Address: [address] [place] [address] [place] Hoang, [place] [address]
--- NOTE | 2018-07-16 11:59 | Discharge Summary ---
Date of Service July 16, 2018 History of Present Illness The patient is a 58-year-old woman, currently in therapy with Yari Patton here in [place], who reports that she has struggled with depression all of her life. She remembers feeling suicidal as early as 16, sitting on her bed holding a knife. She had life stressors in her family of origin including a father who was alcoholic and not functional. She also reports that she has been anxious since she was a child including panic attacks. She did not enter into psychiatric treatment until 10 years ago when she saw psychiatrist and had multiple trials of medications, none of which really offered sustained help. She therefore stopped seeing the psychiatrist, but returned to her PCP. Since the only medication she felt an initial boost from was Paxil, they returned Paxil at 20 mg which was increased to 40 mg several weeks ago. She does not think that the increase has benefited her. She is also on Zyprexa which she describes as being used as a mood stabilizer although has put on 40 pounds and does not like the weight. 1-1/2 years ago her , who had been depressed, committed suicide and this is added an additional layer to her depression. She has 3 children, all of whom have had their own struggles, 2 of which have had depression and inpatient hospitalizations. Last evening, the patient began drinking wine which she usually does in the evening. She admits that she will usually have about 4 drinks although last night had as many as 6. She says that she drinks because then she can feel and is able to cry where she is not able to cry without the alcohol. Last night she says that she was crying inconsolably for hours and her son became concerned and brought her to the emergency department. Today, she is admitted voluntarily. She admits to ongoing chronic and worsening depression. She admits to having suicidal thoughts that are chronic. She says that she has thought about a plan which would include overdosing on medications and alcohol and going somewhere to hide so that she would not be found. She has had long struggles with sleep and is on Ambien 10 mg which she has been using every night lately. Although she reports a 40 pound weight gain since starting Zyprexa, she reports that lately her appetite is been down and she is lost 4 5 pounds. She endorses chronic anxiety dating back to her childhood with panic attacks with triggers that are "nothing or anything". She denies ever having had evidence of psychosis including auditory or visual hallucinations. She denies symptoms of OCD or eating disorders. She does admit to one recent episode of self-injurious behaviors, having cut her left forearm superficially saying that a friend cuts to relieve stress and so she thought she try it, "and it works". She denies any bipolar symptoms including discrete episodes of euphoric mood, decreased need for sleep or increased in goal-directed activities. Physical Exam Vital Signs (Past 24 Hours) Last Vital Signs Temp 36.7 C 07/16/18 06:00 Pulse 77 07/16/18 06:00 Resp 16 07/16/18 06:00 BP 125/82 07/16/18 06:00 Pulse Ox 97 07/14/18 11:29 Psychiatric Data Advance Directives Advance Directives Information Provided: Yes Advance Directives: Yes Mental Health Advance Directive: No Advance Directives on File: No Living Will: Yes Power of Salon Professional: Yes Power of Salon Professional Name: Gissel Forte Advance Directives Reason:: Declines as Mental Health Visit. 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) Supportive Family: Yes Good Rapport with Provider: Yes Tobacco Cessation at Discharge Tobacco Cessation Medication Prescribed at Discharge: Not Applicable/Non-Smoker Discharge Data Lab Results 07/13/18 07/13/18 07/13/18 20:38 20:38 20:38 WBC 7.82 RBC 4.73 Hgb 14.2 Hct 42.2 MCV 89.2 MCH 30.0 MCHC 33.6 RDW Std Deviation 43.5 RDW Coeff of Chito 13.3 Plt Count 288 MPV 9.1 Immature Gran % (Auto) 0.1 Neut % (Auto) 61.1 Lymph % (Auto) 30.8 [place] % (Auto) 5.9 Eos % (Auto) 1.8 Baso % (Auto) 0.3 Immature Gran # (Auto) 0.01 Neut # (Auto) 4.78 Lymph # (Auto) 2.41 [place] # (Auto) 0.46 Eos # (Auto) 0.14 Baso # (Auto) 0.02 Sodium 142 Potassium 3.6 Chloride 110 H Carbon Dioxide 21 Anion Gap 11.0 BUN 7 Creatinine 0.86 Est Cr Clr Drug Dosing 79.3 Est GFR ( Amer) 87.5 Est GFR (Non-Af Amer) 75.5 BUN/Creatinine Ratio 8.3 L Glucose 130 H Fasting Glucose Calcium 9.2 Total Bilirubin 0.3 AST 48 H ALT 63 Alkaline Phosphatase 69 Total Protein 8.6 H Albumin 4.1 Globulin 4.5 H Albumin/Globulin Ratio 0.9 Triglycerides Cholesterol LDL Cholesterol, Calc VLDL Cholesterol, Calc HDL Cholesterol Cholesterol/HDL Ratio Folate TSH 5.720 H Free T4 1.06 Urine Color Urine Appearance Urine pH Ur Specific [place] Urine Protein Urine Glucose (UA) Urine Ketones Urine Blood Urine Nitrite Urine Bilirubin Urine Urobilinogen Ur Leukocyte Esterase Urine WBC (Auto) Urine RBC (Auto) U Hyaline Cast (Auto) U Epithel Cells (Auto) Urine Bacteria (Auto) Ur Renal Epithelial Cell Salicylates < 1.7 L Urine Opiates Screen Ur Methadone, Qual Acetaminophen < 2 L Urine Barbiturates Ur Phencyclidine (PCP) U Amphetamin/Meth Scrn MDMA (Ecstasy) Screen U Benzodiazepines Scrn Ur Cocaine Metabolite U Marijuana (THC) Screen Ethyl Alcohol mg/dL 07/13/18 07/13/18 07/13/18 20:38 21:40 22:18 WBC RBC Hgb Hct MCV MCH MCHC RDW Std Deviation RDW Coeff of Chito Plt Count MPV Immature Gran % (Auto) Neut % (Auto) Lymph % (Auto) [place] % (Auto) Eos % (Auto) Baso % (Auto) Immature Gran # (Auto) Neut # (Auto) Lymph # (Auto) [place] # (Auto) Eos # (Auto) Baso # (Auto) Sodium Potassium Chloride Carbon Dioxide Anion Gap BUN Creatinine Est Cr Clr Drug Dosing Est GFR ( Amer) Est GFR (Non-Af Amer) BUN/Creatinine Ratio Glucose Fasting Glucose Calcium Total Bilirubin AST ALT Alkaline Phosphatase Total Protein Albumin Globulin Albumin/Globulin Ratio Triglycerides Cholesterol LDL Cholesterol, Calc VLDL Cholesterol, Calc HDL Cholesterol Cholesterol/HDL Ratio Folate TSH Free T4 Urine Color Yellow Urine Appearance Clear Urine pH 6.5 Ur Specific [place] 1.010 Urine Protein Negative Urine Glucose (UA) Negative Urine Ketones Negative Urine Blood Trace H Urine Nitrite Negative Urine Bilirubin Negative Urine Urobilinogen Negative Ur Leukocyte Esterase 3+ H Urine WBC (Auto) >30 H Urine RBC (Auto) 0-4 U Hyaline Cast (Auto) 1-5 U Epithel Cells (Auto) >30 H Urine Bacteria (Auto) Negative Ur Renal Epithelial Cell 0-5 Salicylates Urine Opiates Screen Neg Ur Methadone, Qual Neg Acetaminophen Urine Barbiturates Neg Ur Phencyclidine (PCP) Neg U Amphetamin/Meth Scrn Neg MDMA (Ecstasy) Screen Neg U Benzodiazepines Scrn Neg Ur Cocaine Metabolite Neg U Marijuana (THC) Screen Neg Ethyl Alcohol mg/dL 183.0 H 07/15/18 07/16/18 08:49 07:00 WBC RBC Hgb Hct MCV MCH MCHC RDW Std Deviation RDW Coeff of Chito Plt Count MPV Immature Gran % (Auto) Neut % (Auto) Lymph % (Auto) [place] % (Auto) Eos % (Auto) Baso % (Auto) Immature Gran # (Auto) Neut # (Auto) Lymph # (Auto) [place] # (Auto) Eos # (Auto) Baso # (Auto) Sodium Potassium Chloride Carbon Dioxide Anion Gap BUN Creatinine Est Cr Clr Drug Dosing Est GFR ( Amer) Est GFR (Non-Af Amer) BUN/Creatinine Ratio Glucose Fasting Glucose 92 Calcium Total Bilirubin AST ALT Alkaline Phosphatase Total Protein Albumin Globulin Albumin/Globulin Ratio Triglycerides 183 H Cholesterol 202 H LDL Cholesterol, Calc 96 VLDL Cholesterol, Calc 37 HDL Cholesterol 69 Cholesterol/HDL Ratio 3 Folate > 24.00 TSH Free T4 Urine Color Urine Appearance Urine pH Ur Specific [place] Urine Protein Urine Glucose (UA) Urine Ketones Urine Blood Urine Nitrite Urine Bilirubin Urine Urobilinogen Ur Leukocyte Esterase Urine WBC (Auto) Urine RBC (Auto) U Hyaline Cast (Auto) U Epithel Cells (Auto) Urine Bacteria (Auto) Ur Renal Epithelial Cell Salicylates Urine Opiates Screen Ur Methadone, Qual Acetaminophen Urine Barbiturates Ur Phencyclidine (PCP) U Amphetamin/Meth Scrn MDMA (Ecstasy) Screen U Benzodiazepines Scrn Ur Cocaine Metabolite U Marijuana (THC) Screen Ethyl Alcohol mg/dL Hospital Course (1) Depression: 07/14 - Increase Paxil to 60 mg daily - Evaluate affordability of Abilify to augment. Until done, continue Zyprexa 2.5 mg daily - Attempt to taper ambien and ativan due to alcohol abuse - Q 15 min checks for safety - Encourage participation in group and individual counseling - Family meeting - Will need psychiatric aftercare - Assist the patient to explore healthy coping strategies and the need for social supports - Will obtain FLP and FBS for monitoring on atypicals - Safety planning 07/15 -Explore affordability of aripiprazole; in the meantime continue olanzapine 2.5. Fasting lipid profile and glucose ordered for tomorrow. Reviewed the risks, benefits, and side effects of augmentation with an atypical antipsychotic with the patient, she states she has never had fasting labs done before and they have not been followed while taking olanzapine. -Family meeting with adult children. (2) Generalized anxiety disorder: 07/14 - Meds as above - Assist the patient to explore mindfulness and grounding (3) Alcohol abuse: 07/14 - Recommend abstinence. Patient has been counseled about the effects of alcohol on mood. She is receptive to stopping. Greater than 5 min was spend in counseling. - AWSS 07/15 - Continued psychoeducation about the risks of chronic, heavy alcohol use. Reviewed that it is a depressant, can worsen mood over time, and that use of controlled substances such as zolpidem and benzodiazepines are contraindicated with daily alcohol use. - Care coordinated with PCP at [facility] in [place] (information provided to the clinic nurse), PCP who is prescribing these medications, and will send records. Continue taper off Lorazepam and zolpidem. Post Discharge Appointments Primary Care Physician Name Of Family Doctor: [facility] - Dr. Buck / Alia Navarro PA-C Primary Care Date of Appointment with PCP: 07/26/18 Time of Appointment with PCP: 11am Provider Appointment Comment: [address], [address]. [place] [address] Therapist Name of Therapist: Yari Brower LPC - [facility] Therapist's Phone Number: [address], [address], [place] [address] Date of Therapist Appointment: 07/21/18 Time of Therapist Appointment: 8am Therapy Appointment Comment: [phone] Junior Estimator Name of Junior Estimator: None Smoking Cessation Counseling Tobacco Cessation Medication Prescribed at Discharge: Not Applicable/Non-Smoker Contact Information Discharge Discharge Address: [facility] [address] , [place] [address] Discharge Plan Discharge Items Patient Disposition: Home - Self-Care Reason For Visit: DEPRESSION Discharge Diagnosis: Depression, anxiety Discharge Goals: Decrease discomfort, Improve disease control and Improve function Activity: Resume your previous activity Non-emergency contact: Primary Care Provider and Therapist Call non-emergency contact if: you have any medication questions and your symptoms worsen Follow-up/Referrals: PCP,NO [Primary Care Provider] - Diet: Regular Addtl Provider Instructions: SPECIAL CARE INSTRUCTIONS: 1. Follow through with your scheduled aftercare appointments. If unable to keep an appointment, please call to reschedule. 2. Take your medication only as prescribed. Medication should not be changed or stopped without the approval of your doctor. In the event of worsening symptoms or concerns about side effects, contact your doctor immediately. 3. Utilize new healthy coping skills, anger management skills, and stress management skills learned during your hospitalization. Journal feelings and process them with a support person. Identify stressors or situations that may result in relapse, deterioration or inappropriate behaviors and develop a plan to deal with those issues. 4. If your coping skills are ineffective and you are in crisis, contact your outpatient providers for direction. If unable to reach your providers, please call the CAN HELP LINE AT or go to the closest Emergency Room. 5. Avoid alcohol and un-prescribed drugs. 6. You have been provided with the Mental Health Advance Directives Pamphlet for your review. AFTERCARE APPOINTMENTS: * Please call your insurance company prior to your scheduled appointment to confirm your aftercare providers are covered. Take your insurance information to your appointments. WHO TO CALL AND WHEN: Medical Emergencies: For questions or emergencies related to your hospital stay, please contact the Inpatient Behavioral Health Unit at [phone]. A proctologist is on-call 13/10 for the Behavioral Health Unit for emergencies At any time you feel your situation is an emergency, you may also call 911 immediately. Your Doctors Instructions noted above were prepared by provider [facility] Call. Prescriptions: New paroxetine HCl 20 mg Tablet 60 mg PO DAILY Qty: 42 RF: 0 aripiprazole [Abilify] 5 mg Tablet 2.5 mg PO QAM Qty: 15 RF: 0 Continued zolpidem [Ambien] 5 mg Tablet 5 mg PO HS PRN (Reason: sleep) RF: 0 Changed lorazepam 0.5 mg Tablet 0.5 mg PO BID PRN (Reason: Anxiety) Qty: 0 RF: 0 Discontinued paroxetine HCl [Paxil] 10 mg Tablet 40 mg PO DAILY RF: 0 olanzapine [Zyprexa] 2.5 mg Tablet 2.5 mg PO HS RF: 0 Stand-Alone Forms: [facility] Discharge Orders: Discharge Order (Routine); Ordered 07/16/18 Ordered By: Ingris Myers Admission Data Admit Date/Time: 07/14/18 09:28 Attending Provider: Kimberley Brar Admit Provider: Kimberley Brar Primary Care Provider: PCP,NO Service: Psychiatry Other Interventions: PSY Interdisciplinary Discharge Planning Last Done: 07/16/18 10:15 Pending Studies at Discharge: No
[2018-07-16] MEDS ORDERED: ARIPiprazole 5 MG TAB PO SCH (12:00)
== END 2018-07-16 15:25 | disposition home or self-care (01) | DRG 885 ==
LOC: ED 20:00 → 3S 07-14 09:28